=== PATIENT | male | born 1960 | race Caucasian/White ===

== ENCOUNTER 2018-02-05 11:41 | Emergency (ER) | payer SELFPAY ==
[2018-02-05] MEDS ORDERED: DOXYCYCLINE 100 MG CAP PO ONE (12:45)
[2018-02-05] MEDS ORDERED: CLINDAMYCIN IV 150 MG/ML (4 mL) VIAL ONE (12:50)
--- NOTE | 2018-02-05 12:50 | EDPHYS ---
Physician Documentation [facility] Name: Edson Rosenbaum Age: 57 yrs Sex: Male : 1960 Arrival Date: 02/05/2018 Time: 11:45 Bed 6 Private MD: None, None ED Physician Garcia Beltran HPI: 02/05 12:56 This 57 yrs old Male presents to ER via Ambulatory with complaints of Abscess.kdr 12:56 The patient presents with an abscess of the left elbow and right quadriceps, the kdr patient presents with a swollen area of the . Description: irregular, localized, well demarcated, draining, erythematous, fluctuant, swollen, tense, warm. Onset: The symptoms/episode began/occurred gradually, 1 week(s) ago. Possible cause(s): unknown. Associated signs and symptoms: The patient has no apparent associated signs or symptoms. Modifying factors: the symptoms are alleviated by nothing, the symptoms are aggravated by movement, pressure, squeezing the lesion and expressing the contents, touching. Severity of symptoms: At their worst the symptoms were mild, in the emergency department the symptoms are unchanged. The patient has experienced similar episodes in the past, several times. The patient has not recently seen a physician. Historical: - Allergies: 11:51 No Known Allergies; la1 - PMHx: 11:51 Hypertension; la1 - Immunization history:: Adult Immunizations. - Social history:: Smoking status: Patient uses tobacco products, smokes two packs cigarettes per day. - Ebola Screening: : No symptoms or risks identified at this time. ROS: 12:56 Constitutional: Negative for fever, chills, and weight loss, Eyes: Negative for injury, kdr pain, redness, and discharge, ENT: Negative for injury, pain, and discharge, Neck: Negative for injury, pain, and swelling, Cardiovascular: Negative for chest pain, palpitations, and edema, Respiratory: Negative for shortness of breath, cough, wheezing, and pleuritic chest pain, Abdomen/GI: Negative for abdominal pain, nausea, vomiting, diarrhea, and constipation, Back: Negative for injury and pain, : Negative for injury, bleeding, discharge, and swelling, MS/Extremity: Negative for injury and deformity, Neuro: Negative for headache, weakness, numbness, tingling, and seizure activity. Psych: Negative for depression, anxiety, suicide ideation, homicidal ideation, and hallucinations, Allergy/Immunology: Negative for hives, rash, and allergies, Endocrine: Negative for neck swelling, polydipsia, polyuria, polyphagia, and marked weight changes, Hematologic/Lymphatic: Negative for swollen nodes, abnormal bleeding, and unusual bruising. 12:56 Skin: Positive for abscess, cellulitis, erythema, swelling. Exam: 12:56 Constitutional: This is a well developed, well nourished patient who is awake, alert, kdr and in no acute distress. 12:56 Skin: Appearance: normal except for affected area, abscess, that is small, that is moderate sized, approximately 2 cm(s), of the left elbow and right quadriceps. Vital Signs: 11:50 BP 150 / 90; Pulse 86; Resp 19; Temp 98.3(TE); Pulse Ox 100% on R/A; Weight 83.91 kg; la1 MDM: 12:49 Patient medically screened. kdr 12:56 Data reviewed: vital signs, nurses notes. Counseling: I had a detailed discussion with kdr the patient and/or guardian regarding: the historical points, exam findings, and any diagnostic results supporting the discharge/admit diagnosis, the need for outpatient follow up. Special discussion: I discussed with the patient/guardian in detail that at this point there is no indication for admission to the hospital. It is understood, however, that if the symptoms persist or worsen the patient needs to return immediately for re-evaluation. Administered Medications: 12:48 Drug: Clindamycin 900 mg {Note: 450mg administered to right gluteus and 450mg aa5 administered to left gluteus .} Route: IM; Site: right gluteus; 13:10 Follow up: Response: No adverse reaction aa5 12:48 Drug: Doxycycline 100 mg Route: PO; aa5 13:10 Follow up: Response: No adverse reaction aa5 Disposition: 02/05/18 12:49 Discharged to Home. Impression: Abscess to right anterior though and left elbow. - Condition is Stable. - Prescriptions for Clindamycin HCl 300 mg Oral Capsule - take 1 capsule by ORAL route every 6 hours for 10 days; 40 capsule. Doxycycline Hyclate 100 mg Oral Tablet - take 1 tablet by ORAL route every 12 hours for 10 days; 20 tablet. Tylenol- Codeine #3 300-30 mg Oral Tablet - take 2 tablets by ORAL route every 6 hours As needed; 16 tablet. - Medication Reconciliation Form, Thank You Letter, Antibiotic Education, Prescription Opioid Use form. - Follow up: Private Physician; When: 2 - 3 days; Reason: If symptoms return, Further diagnostic work-up, Recheck today's complaints, Continuance of care, Re-evaluation by your physician. - Problem is new. - Symptoms have improved. Signatures: Garcia Beltran MD MD kdr Tatyana Munoz RN RN aa5 Francisco Javier Quiroz RN RN la1 Corrections: (The following items were deleted from the chart) 13:12 12:49 02/05/2018 12:49 Discharged to Home. Impression: Abscess to right anterior though aa5 and left elbow. Condition is Stable. Forms are Medication Reconciliation Form, Thank You Letter, Antibiotic Education, Prescription Opioid Use. Follow up: Private Physician; When: 2 - 3 days; Reason: If symptoms return, Further diagnostic work-up, Recheck today's complaints, Continuance of care, Re-evaluation by your physician. Problem is new. Symptoms have improved. kdr
--- NOTE | 2018-02-05 12:50 | ER ---
Nurse's Notes [facility] Name: Edson Rosenbaum Age: 57 yrs Sex: Male : 1960 Arrival Date: 02/05/2018 Time: 11:45 Bed 6 Private MD: None, None Diagnosis: Abscess to right anterior though and left elbow Presentation: 02/05 11:50 Presenting complaint: Patient states: Abscess noted to left elbow and right thigh. la1 Transition of care: patient was not received from another setting of care. Onset of symptoms was February 05, 2018. Risk Assessment: Do you want to hurt yourself or someone else? Patient reports no desire to harm self or others. Initial Sepsis Screen: Does the patient meet any 2 criteria? No. Patient's initial sepsis screen is negative. Does the patient have a suspected source of infection? No. Patient's initial sepsis screen is negative. Care prior to arrival: None. 11:50 Method Of Arrival: Ambulatory la1 11:50 Acuity: OLIVIA 4 la1 Historical: - Allergies: 11:51 No Known Allergies; la1 - PMHx: 11:51 Hypertension; la1 - Immunization history:: Adult Immunizations. - Social history:: Smoking status: Patient uses tobacco products, smokes two packs cigarettes per day. - Ebola Screening: : No symptoms or risks identified at this time. Screenin:50 Abuse screen: Denies threats or abuse. Nutritional screening: No deficits noted. aa5 Tuberculosis screening: No symptoms or risk factors identified. Fall Risk None identified. Assessment: 11:50 General: Appears comfortable, Behavior is calm, cooperative. Pain: Complains of pain in aa5 left elbow and right thigh Pain does not radiate. Pain currently is 8 out of 10 on a pain scale. Quality of pain is described as tender, Is continuous. Neuro: Level of Consciousness is awake, alert, obeys commands, Oriented to person, place, time, situation. Cardiovascular: Heart tones S1 S2 present Rhythm is regular. Respiratory: Airway is patent Respiratory effort is even, unlabored, Respiratory pattern is regular, symmetrical. GI: No signs and/or symptoms were reported involving the gastrointestinal system. : No signs and/or symptoms were reported regarding the genitourinary system. EENT: No signs and/or symptoms were reported regarding the EENT system. Derm: Skin is pink, warm \T\ dry. Abscess located on left elbow and right thigh. Abscess to left elbow is open and draining clear fluid, abscess to right thigh is closed with no drainage noted and with redness. Musculoskeletal: Range of motion: intact in all extremities. 13:10 Reassessment: Patient is alert, oriented x 3, equal unlabored respirations, skin aa5 warm/dry/pink. Vital Signs: 11:50 BP 150 / 90; Pulse 86; Resp 19; Temp 98.3(TE); Pulse Ox 100% on R/A; Weight 83.91 kg; la1 ED Course: 11:45 Patient arrived in ED. mr 11:45 None, None is Private Physician. mr 11:50 Triage completed. la1 11:50 Arm band placed on left wrist. la1 11:50 Patient has correct armband on for positive identification. Bed in low position. Call aa5 light in reach. 11:54 Tatyana Munoz, RN is Primary Nurse. aa5 12:07 Garcia Beltran MD is Attending Physician. kdr 12:34 No provider procedures requiring assistance completed. aa5 13:10 Patient did not have IV access during this emergency room visit. aa5 Administered Medications: 12:48 Drug: Clindamycin 900 mg {Note: 450mg administered to right gluteus and 450mg aa5 administered to left gluteus .} Route: IM; Site: right gluteus; 13:10 Follow up: Response: No adverse reaction aa5 12:48 Drug: Doxycycline 100 mg Route: PO; aa5 13:10 Follow up: Response: No adverse reaction aa5 Outcome: 12:49 Discharge ordered by . kdr 13:10 Discharged to home ambulatory. aa5 13:10 Condition: stable 13:10 Discharge instructions given to patient, Instructed on discharge instructions, follow up and referral plans. medication usage, Demonstrated understanding of instructions, follow-up care, medications, Prescriptions given X 3. 13:12 Patient left the ED. aa5 Signatures: Garcia Beltran MD MD kdr Rivera, Maria mr Tatyana Munoz, RN RN aa5 Francisco Javier Quiroz RN RN la1
== END 2018-02-05 13:12 | disposition home or self-care (01) ==
LOC: ER 11:41
DX: L02.414 Cutaneous abscess of left upper limb (principal); L02.415 Cutaneous abscess of right lower limb; I10 Essential (primary) hypertension; F17.210 Nicotine dependence, cigarettes, uncomplicated
CPT/HCPCS: 96372; 99283; S0077

== ENCOUNTER 2019-10-08 19:30 | Emergency (ER) | payer SELFPAY ==
[2019-10-08 20:40] LABS: Absolute Lymphocytes (CBC) 1.8 K/uL (0.7-4.9); Basophils % 0.9 % (0-1.3); Hematocrit 44.3 % (39.6-49.0); Lymphocytes % 13.6 % (15.3-44.8); MPV 9.6 fL (7.6-11.3); RBC Red Blood Cell Count 4.88 M/uL (4.33-5.43)
[2019-10-08] MEDS ORDERED: LIDOCAINE 1% MPF 5 ML VIAL ONE (20:41)
[2019-10-08] MEDS ORDERED: CLINDAMYCIN 900MG/D5W 900 MG/50 ML IVPB IV ONE (20:41)
[2019-10-08] MEDS ORDERED: HYDRALAZINE HCL 20 MG/ML VIAL ONE (20:41)
--- NOTE | 2019-10-08 21:17 | ER ---
Nurse's Notes [facility] Name: Edson Rosenbaum Age: 59 yrs Sex: Male : 1960 Arrival Date: 10/08/2019 Time: 19:31 Bed 20 Private MD: Diagnosis: Cellulitis of face;Hypertension secondary to other renal disorders Presentation: 10/07 19:34 Chief complaint: Patient states: Abscess and swelling on L cheek x 2 days. Coronavirus ca1 screen: Proceed with normal triage. Patient denies a cough. Patient denies shortness of breath or difficulty breathing. Patient denies measured and/or subjective temperature greater than 100.4F prior to today's visit. Patient denies travel on a cruise ship or to a country the [facility] currently lists as an affected area. Patient denies contact with known and/or suspected case of COVID-19. Ebola Screen: Patient negative for fever greater than or equal to 101.5 degrees Fahrenheit, and additional compatible Ebola Virus Disease symptoms Patient denies exposure to infectious person. Patient denies travel to an Ebola-affected area in the 21 days before illness onset. No symptoms or risks identified at this time. Initial Sepsis Screen: Does the patient meet any 2 criteria? No. Patient's initial sepsis screen is negative. Does the patient have a suspected source of infection? No. Patient's initial sepsis screen is negative. Risk Assessment: Do you want to hurt yourself or someone else? Patient reports no desire to harm self or others. Onset of symptoms was October 08, 2019. 19:34 Method Of Arrival: Ambulatory ca1 19:34 Acuity: OLIVIA 4 ca1 Triage Assessment: 20:00 General: Appears in no apparent distress. uncomfortable, Behavior is calm, cooperative. ls4 20:00 Neuro: No deficits noted. Cardiovascular: No deficits noted. Respiratory: No deficits ls4 noted. Historical: - Allergies: 19:37 No Known Allergies; ca1 - Home Meds: 19:37 None [Active]; ca1 - PMHx: 19:37 Hypertension; ca1 - PSHx: 19:37 Cholecystectomy; Appendectomy; ca1 - Immunization history:: Adult Immunizations not up to date, Flu vaccine is not up to date. - Social history:: Smoking status: Patient reports the use of cigarette tobacco products, smokes two packs cigarettes per day. Screenin:39 Abuse screen: Denies threats or abuse. Denies injuries from another. ls4 19:39 Nutritional screening: No deficits noted. Tuberculosis screening: No symptoms or risk ls4 factors identified. Fall Risk None identified. Assessment: 20:01 Pain: Complains of pain in left cheek Pain currently is 7 out of 10 on a pain scale. ls4 20:01 Neuro: No deficits noted. Cardiovascular: Denies chest pain. Respiratory: No deficits ls4 noted. GI: No deficits noted. : No deficits noted. Derm: Abscess located on left cheek is quarter sized. Musculoskeletal: No deficits noted. Vital Signs: 19:34 BP 191 / 121; Pulse 105; Resp 18 S; Temp 98.6(TE); Pulse Ox 98% on R/A; Weight 90.72 kg ca1 (R); Height 6 ft. 5 in. (195.58 cm) (R); Pain 7/10; 21:00 BP 188 / 118; Pulse 102; Resp 22; Pulse Ox 99% ; Pain 0/10; ls4 21:49 BP 160 / 94; Pulse 78; Resp 16; Temp 98.4(O); Pulse Ox 99% on R/A; Pain 7/10; ls4 19:34 Body Mass Index 23.72 (90.72 kg, 195.58 cm) ca1 ED Course: 19:31 Patient arrived in ED. ds1 19:36 Triage completed. ca1 19:37 Arm band placed on right wrist. ca1 19:38 Anupam Beasley MD is Attending Physician. tw4 19:39 Patient has correct armband on for positive identification. Bed in low position. Call ls4 light in reach. Side rails up X 1. Pulse ox on. NIBP on. Verbal reassurance given. Diet: Patient is NPO. 19:42 Abida Marsh, RN is Primary Nurse. ls4 20:26 Initial lab(s) drawn, by , sent to lab. First set of blood cultures drawn By ISABEL jamil. lt1 20:31 Inserted saline lock: 20 gauge in right antecubital area, using aseptic technique. lt1 20:54 Second set of blood cultures drawn By MAHI jamil. lt1 21:01 Assist provider with I \T\ D: of an abscess on left facial cyst. Set up I\T\D tray. ls 4 Performed by Anupam Beasley MD Wound packed. iodoform gauze, Dressing with 4X4s, Patient tolerated well. 21:58 IV discontinued, intact, bleeding controlled, No redness/swelling at site. ls4 Administered Medications: 20:35 Drug: Cleocin 900 mg Route: IVPB; Infused Over: 30 mins; Site: left antecubital; ls4 21:05 Follow up: Response: No adverse reaction; IV Status: Completed infusion; IV Intake: [id number] 20:38 Drug: hydrALAZINE 20 mg Route: IV; Rate: bolus; Site: left antecubital; ls4 21:30 Follow up: IV Status: Completed infusion; IV Intake: 5ml ls4 20:38 Drug: Lidocaine (1 %) 1 vials Volume: 5 ml; Route: Infiltration; ls4 21:28 Drug: Labetalol 20 mg Route: IVP; Infused Over: 2 mins; Site: left antecubital; ls4 21:48 Follow up: Response: No adverse reaction; Marked relief of symptoms; Blood pressure is ls4 lowered Intake: 21:05 IV: 50ml; Total: 50ml. ls4 21:30 IV: 5ml; Total: 55ml. ls4 Outcome: 21:01 Discharged to home ambulatory. ls4 21:01 Condition: good 21:01 Discharge instructions given to patient, Instructed on discharge instructions, follow up and referral plans. safety practices, Demonstrated understanding of instructions, follow-up care, medications, wound care, Prescriptions given X 3. 21:17 Discharge ordered by . tw4 22:00 Patient left the ED. ls4 Signatures: Odalis Knutson ds1 Anupam Beasley MD MD tw4 Abida Marsh, ELVIA RN ls4 Ursula Garza RN RN ca1 Jena Cee 1 Corrections: (The following items were deleted from the chart) 19:41 19:34 Chief complaint: Patient states: Abscess and swelling on L cheek x 2 days ago. ca1ca1 19:41 19:34 Chief complaint: Patient states: Abscess and swelling on L cheek x 2 days ca1 ca1 21:31 21:30 IV Status: Completed infusion; IV Intake: 50ml ls4 ls4 21:31 21:31 Response: No adverse reaction; IV Status: Completed infusion; IV Intake: 50ml ls4 ls4 21:57 19:39 No provider procedures requiring assistance completed. ls4 ls4
--- NOTE | 2019-10-08 21:17 | EDPHYS ---
Physician Documentation [facility] Name: Edson Rosenbaum Age: 59 yrs Sex: Male : 1960 Arrival Date: 10/08/2019 Time: 19:31 Bed 20 Private MD: ED Physician Anupam Beasley HPI: 10/07 20:20 This 59 yrs old Male presents to ER via Ambulatory with complaints of Facial tw4 Cyst. 20:20 The patient presents with an abscess of the left cheek, The patient presents with tw4 cellulitis of the left cheek, the patient presents with a swollen area of the left cheek. Description: The affected area is moderate sized, localized, draining, erythematous, fluctuant, hot. Onset: The symptoms/episode began/occurred 2 day(s) ago. Possible cause(s): unknown. Associated signs and symptoms: The patient has no apparent associated signs or symptoms. Modifying factors: the symptoms are alleviated by nothing, the symptoms are aggravated by nothing. Severity of symptoms: At their worst the symptoms were moderate, in the emergency department the symptoms are unchanged. Historical: - Allergies: 19:37 No Known Allergies; ca1 - Home Meds: 19:37 None [Active]; ca1 - PMHx: 19:37 Hypertension; ca1 - PSHx: 19:37 Cholecystectomy; Appendectomy; ca1 - Immunization history:: Adult Immunizations not up to date, Flu vaccine is not up to date. - Social history:: Smoking status: Patient reports the use of cigarette tobacco products, smokes two packs cigarettes per day. ROS: 20:20 Constitutional: Negative for fever, chills, and weight loss, Eyes: Negative for injury, tw4 pain, redness, and discharge, Cardiovascular: Negative for chest pain, palpitations, and edema, Respiratory: Negative for shortness of breath, cough, wheezing, and pleuritic chest pain, Abdomen/GI: Negative for abdominal pain, nausea, vomiting, diarrhea, and constipation, Back: Negative for injury and pain, MS/Extremity: Negative for injury and deformity. 20:20 Skin: Positive for abscess, cellulitis, of the left cheek. Exam: 20:20 Constitutional: This is a well developed, well nourished patient who is awake, alert, tw4 and in no acute distress. Head/Face: Normocephalic, atraumatic. Chest/axilla: Normal chest wall appearance and motion. Nontender with no deformity. No lesions are appreciated. Cardiovascular: Regular rate and rhythm with a normal S1 and S2. No gallops, murmurs, or rubs. Normal PMI, no JVD. No pulse deficits. Respiratory: Lungs have equal breath sounds bilaterally, clear to auscultation and percussion. No rales, rhonchi or wheezes noted. No increased work of breathing, no retractions or nasal flaring. Abdomen/GI: Soft, non-tender, with normal bowel sounds. No distension or tympany. No guarding or rebound. No evidence of tenderness throughout. Back: No spinal tenderness. No costovertebral tenderness. Full range of motion. MS/ Extremity: Pulses equal, no cyanosis. Neurovascular intact. Full, normal range of motion. Neuro: Awake and alert, GCS 15, oriented to person, place, time, and situation. Cranial nerves II-XII grossly intact. Motor strength 5/5 in all extremities. Sensory grossly intact. Cerebellar exam normal. Normal gait. 20:20 Skin: abscess, that is moderate sized, approximately 4 cm(s), of the left cheek, cellulitis, that is moderate. Vital Signs: 19:34 BP 191 / 121; Pulse 105; Resp 18 S; Temp 98.6(TE); Pulse Ox 98% on R/A; Weight 90.72 kg ca1 (R); Height 6 ft. 5 in. (195.58 cm) (R); Pain 7/10; 21:00 BP 188 / 118; Pulse 102; Resp 22; Pulse Ox 99% ; Pain 0/10; ls4 21:49 BP 160 / 94; Pulse 78; Resp 16; Temp 98.4(O); Pulse Ox 99% on R/A; Pain 7/10; ls4 19:34 Body Mass Index 23.72 (90.72 kg, 195.58 cm) ca1 Procedures: 21:09 I \T\ D: Incision and drainage was performed for an abscess of the left left cheek tw4 Prepped with Betadine, Anesthetized with 3 ml's 1% Lidocaine. Incised with #10 blade. Drained small amount Packed with iodoform gauze, Dressing: sterile 4x4 gauze, the patient tolerated the procedure well. MDM: 19:44 Patient medically screened. tw4 21:16 Differential diagnosis: abscess, cellulitis. Data reviewed: vital signs, nurses notes. tw4 Data interpreted: Pulse oximetry: Interpretation: normal. Counseling: I had a detailed discussion with the patient and/or guardian regarding: the historical points, exam findings, and any diagnostic results supporting the discharge/admit diagnosis. Counseling: I had a detailed discussion with the patient and/or guardian regarding: the presence of at least one elevated blood pressure reading (>120/80) during this emergency department visit. 10/07 19:49 Order name: CBC with Diff; Complete Time: 21:08 tw4 10/07 21:09 Interpretation: Normal except: WBC 13.1; LYM% 13.6; SHARONDA% 75.8; LYMA 1.8; NEUT A 10.0. tw4 10/07 19:49 Order name: Blood Culture Adult (2) tw4 Administered Medications: 20:35 Drug: Cleocin 900 mg Route: IVPB; Infused Over: 30 mins; Site: left antecubital; ls4 21:05 Follow up: Response: No adverse reaction; IV Status: Completed infusion; IV Intake: [id number] 20:38 Drug: hydrALAZINE 20 mg Route: IV; Rate: bolus; Site: left antecubital; ls4 21:30 Follow up: IV Status: Completed infusion; IV Intake: 5ml ls4 20:38 Drug: Lidocaine (1 %) 1 vials Volume: 5 ml; Route: Infiltration; ls4 21:28 Drug: Labetalol 20 mg Route: IVP; Infused Over: 2 mins; Site: left antecubital; ls4 21:48 Follow up: Response: No adverse reaction; Marked relief of symptoms; Blood pressure is ls4 lowered Disposition: 10/08/19 21:17 Discharged to Home. Impression: Cellulitis of face, Hypertension secondary to other renal disorders. - Condition is Stable. - Discharge Instructions: Skin Abscess, Cellulitis, Adult, Hypertension, [id number], Percutaneous Abscess Drain. - Prescriptions for Cleocin 300 mg Oral Capsule - take 1 capsule by ORAL route every 6 hours for 10 days; 40 capsule. Norvasc 10 mg Oral Tablet - take 1 tablet by ORAL route once daily; 30 tablet. Tylenol- Codeine #3 300-30 mg Oral Tablet - take 2 tablet by ORAL route every 6 hours As needed; 6 tablet. - Medication Reconciliation Form, Thank You Letter, Antibiotic Education, Prescription Opioid Use form. - Follow up: Private Physician; When: 1 - 2 days; Reason: Recheck today's complaints, Continuance of care, Re-evaluation by your physician. - Problem is new. - Symptoms have improved. Signatures: Dispatcher [employer] Anupam Duval MD MD tw4 Abida Marsh RN RN ls4 Ursula Garza RN RN ca1 Corrections: (The following items were deleted from the chart) 22:00 21:17 10/08/2019 21:17 Discharged to Home. Impression: Cellulitis of face; Hypertension ls4 secondary to other renal disorders. Condition is Stable. Forms are Medication Reconciliation Form, Thank You Letter, Antibiotic Education, Prescription Opioid Use. Follow up: Private Physician; When: 1 - 2 days; Reason: Recheck today's complaints, Continuance of care, Re-evaluation by your physician. Problem is new. Symptoms have improved. tw4
[2019-10-08] MEDS ORDERED: LABETALOL 20 MG/4ML SYRINGE IV ONE (21:22)
[2019-10-08 23:51] VITALS: O2SAT 99
[2019-10-08 23:52] VITALS: BP 160/94; TEMP 98.4
== END 2019-10-08 22:00 | disposition home or self-care (01) ==
LOC: ER 19:30
PROC: 0J910ZZ Drainage of Face Subcutaneous Tissue and Fascia, Open Approach (ICD-10-PCS; principal; 2019-10-08)
DX: L03.211 Cellulitis of face (principal); I15.1 Hypertension secondary to other renal disorders; F17.210 Nicotine dependence, cigarettes, uncomplicated
CPT/HCPCS: 36415; 85025; 87040; 96365; 96375; 99284; J0360

== ENCOUNTER 2019-10-12 19:31 | Emergency (ER) | payer SELFPAY ==
[2019-10-12] MEDS ORDERED: LIDOCAINE 1% MPF 5 ML VIAL ONE (21:19)
--- NOTE | 2019-10-12 22:31 | ER ---
Nurse's Notes [facility] Name: Edson Rosenbaum Age: 59 yrs Sex: Male : 1960 Arrival Date: 10/12/2019 Time: 19:33 Bed 5 Private MD: Diagnosis: Cutaneous abscess of face Presentation: 10/11 19:55 Chief complaint: Patient states: swelling on my left face started last Wednesday, came rr5 here last Wednesday they do drainage and now the upper area getting swollen. denies fever. 19:55 Coronavirus screen: Proceed with normal triage. Ebola Screen: Patient negative for rr5 fever greater than or equal to 101.5 degrees Fahrenheit, and additional compatible Ebola Virus Disease symptoms Patient denies exposure to infectious person. Patient denies travel to an Ebola-affected area in the 21 days before illness onset. Initial Sepsis Screen: Does the patient meet any 2 criteria? No. Patient's initial sepsis screen is negative. Does the patient have a suspected source of infection? Yes: Skin breakdown/wound. Risk Assessment: Do you want to hurt yourself or someone else? Patient reports no desire to harm self or others. Onset of symptoms was October 06, 2019. 19:55 Method Of Arrival: Ambulatory rr5 19:55 Acuity: OLIVIA 3 rr5 19:55 Note on antibiotic treatment now. rr5 Triage Assessment: 20:45 General: Appears uncomfortable, Behavior is calm, cooperative. ls4 20:45 Pain: Complains of pain in left cheek Pain currently is 8 out of 10 on a pain scale. ls4 EENT: No deficits noted. No signs and/or symptoms were reported regarding the EENT system. Neuro: No deficits noted. Cardiovascular: No deficits noted. Respiratory: No deficits noted. GI: No deficits noted. No signs and/or symptoms were reported involving the gastrointestinal system. : No deficits noted. No signs and/or symptoms were reported regarding the genitourinary system. Derm: GOLF BALL SIZED SWELLING ON LEFT CHEEK. Musculoskeletal: No deficits noted. No signs and/or symptoms reported regarding the musculoskeletal system. Historical: - Allergies: 20:00 No Known Allergies; rr5 - Home Meds: 20:00 Aleve Oral [Active]; rr5 - PMHx: 20:00 Hypertension; rr5 - PSHx: 20:00 Appendectomy; Cholecystectomy; hand surgery; rr5 - Immunization history:: Adult Immunizations unknown, Last tetanus immunization: up to date. - Social history:: Smoking status: Patient reports the use of cigarette tobacco products, smokes two packs cigarettes per day. Patient/guardian denies using alcohol, street drugs. - Family history:: not pertinent. - Hospitalizations: : No recent hospitalization is reported. Screenin:17 Abuse screen: Denies threats or abuse. Denies injuries from another. Nutritional rv screening: No deficits noted. Tuberculosis screening: No symptoms or risk factors identified. Fall Risk None identified. Assessment: 21:30 General: Appears comfortable, Behavior is calm, cooperative. rv 21:30 Pain: Complains of pain in face. Neuro: Level of Consciousness is awake, alert, obeys rv commands, Oriented to person, place, time, situation. Cardiovascular: Patient's skin is warm and dry. Respiratory: Airway is patent. Derm: Abscess located on left cheek is golf ball sized. Vital Signs: 19:55 BP 176 / 97; Pulse 116; Resp 20; Temp 97.8; Pulse Ox 98% ; Weight 90.72 kg; Height 6 rr5 ft. 5 in. (195.58 cm); Pain 8/10; 23:00 BP 167 / 92; Pulse 98; Resp 19; Pulse Ox 99% on R/A; Pain 5/10; ls4 19:55 Body Mass Index 23.72 (90.72 kg, 195.58 cm) rr5 ED Course: 19:33 Patient arrived in ED. ag3 19:55 Arm band placed on right wrist. rr5 20:02 Triage completed. rr5 20:40 Derek Cade, ELVIA is Primary Nurse. rr5 20:43 Tino Valverde MD is Attending Physician. rn 21:00 Assist provider with I \T\ D: of an abscess on left CHEEK Set up I\T\D tray. Performed by ls 4 Tino Valverde MD Culture sent to lab. Wound packed. iodoform gauze, Dressing with BANDAID Patient tolerated well. 21:00 Patient did not have IV access during this emergency room visit. ls4 21:13 Les Grubbs, ELVIA is Primary Nurse. rv 22:18 Patient has correct armband on for positive identification. Bed in low position. Call rv light in reach. Pulse ox on. CHINTANBP on. Administered Medications: 22:38 Drug: Lidocaine (1 %) 1 vials {Note: per Dr Valverde .} Volume: 5 ml; Route: Infiltration; ls4 22:40 Drug: [place] 10 mg-325 mg 1 tabs Route: PO; ls4 23:04 Follow up: Response: No adverse reaction; Marked relief of symptoms ls4 Outcome: 21:00 Discharged to home ambulatory, with family. ls4 21:00 Condition: stable 21:00 Discharge instructions given to patient, Instructed on discharge instructions, follow up and referral plans. medication usage, safety practices, Demonstrated understanding of instructions, follow-up care, medications, Prescriptions given X 1. 22:30 Discharge ordered by . rn 23:04 Patient left the ED. ls4 Signatures: Tino Valverde MD MD rn Vicente, Ronaldo RN RN Gabriela Luis ag3 Abida Marsh RN RN ls4 Derek Cade RN RN rr5
--- NOTE | 2019-10-12 22:31 | EDPHYS ---
Physician Documentation [facility] Name: Edson oRsenbaum Age: 59 yrs Sex: Male : 1960 Arrival Date: 10/12/2019 Time: 19:33 Bed 5 Private MD: ED Physician Tino Valverde HPI: 10/11 21:22 This 59 yrs old Male presents to ER via Ambulatory with complaints of BUMP ON rn FACE. 21:22 The patient presents with an abscess of the face. rn 21:23 Description: erythematous, fluctuant, swollen, warm. Onset: The symptoms/episode rn began/occurred 4 day(s) ago. Associated signs and symptoms: Pertinent positives: erythema. Modifying factors: the symptoms are alleviated by nothing, the symptoms are aggravated by touching. Severity of symptoms: At their worst the symptoms were mild, in the emergency department the symptoms are unchanged. The patient has not experienced similar symptoms in the past. Reports seen her recently for abscess, states left face was swollen, he poked it several times at home with syringe, majority of facial swelling improved but now noticed area that is growing just under left eye. No fever. Still on abx.. Historical: - Allergies: 20:00 No Known Allergies; rr5 - Home Meds: 20:00 Aleve Oral [Active]; rr5 - PMHx: 20:00 Hypertension; rr5 - PSHx: 20:00 Appendectomy; Cholecystectomy; hand surgery; rr5 - Immunization history:: Adult Immunizations unknown, Last tetanus immunization: up to date. - Social history:: Smoking status: Patient reports the use of cigarette tobacco products, smokes two packs cigarettes per day. Patient/guardian denies using alcohol, street drugs. - Family history:: not pertinent. - Hospitalizations: : No recent hospitalization is reported. ROS: 21:23 Constitutional: Negative for fever, chills, and weight loss, Eyes: Negative for injury, rn pain, redness, and discharge, ENT: Negative for injury Neck: Negative for injury, pain, and swelling, Skin: + abscess left upper face Neuro: Negative for headache, weakness, numbness, tingling, and seizure. Exam: 21:23 Constitutional: This is a well developed, well nourished patient who is awake, alert, rn and in no acute distress. Head/Face: Atraumatic. Skin: Warm, dry, area of about 2.5 cm of fluctuance and warmth/erythema, left periorbital region inferior and lateral to orbit. Inferior to this is old wound that was incised. No evidence of cellulitis or abscess to rest of face. Vital Signs: 19:55 BP 176 / 97; Pulse 116; Resp 20; Temp 97.8; Pulse Ox 98% ; Weight 90.72 kg; Height 6 rr5 ft. 5 in. (195.58 cm); Pain 8/10; 23:00 BP 167 / 92; Pulse 98; Resp 19; Pulse Ox 99% on R/A; Pain 5/10; ls4 19:55 Body Mass Index 23.72 (90.72 kg, 195.58 cm) rr5 Procedures: 22:29 I \T\ D: Incision and drainage was performed for an abscess of the left left cheek rn Prepped with Betadine, Anesthetized with 3 ml's 1% Lidocaine. Incised with #11 blade. Drained moderate amount purulent fluid. Packed with iodoform gauze, Dressing: sterile 4x4 gauze, the patient tolerated the procedure well. MDM: 20:43 Patient medically screened. rn 22:29 Differential diagnosis: abscess. Data reviewed: vital signs, nurses notes, and as a rn result, I will discharge patient. Counseling: I had a detailed discussion with the patient and/or guardian regarding: the historical points, exam findings, and any diagnostic results supporting the discharge/admit diagnosis, the need for outpatient follow up, to return to the emergency department if symptoms worsen or persist or if there are any questions or concerns that arise at home. Response to treatment: the patient's symptoms have markedly improved after treatment, and as a result, I will discharge patient. Special discussion: I discussed with the patient/guardian in detail that at this point there is no indication for admission to the hospital. It is understood, however, that if the symptoms persist or worsen the patient needs to return immediately for re-evaluation. 10/11 20:52 Order name: Wound Culture rn 10/11 20:52 Order name: Incision \T\ Drainage Setup; Complete Time: 21:16 rn Administered Medications: 22:38 Drug: Lidocaine (1 %) 1 vials {Note: per Dr Valverde .} Volume: 5 ml; Route: Infiltration; ls4 22:40 Drug: [place] 10 mg-325 mg 1 tabs Route: PO; ls4 23:04 Follow up: Response: No adverse reaction; Marked relief of symptoms ls4 Disposition: 10/12/19 22:30 Discharged to Home. Impression: Cutaneous abscess of face. - Condition is Stable. - Discharge Instructions: Skin Abscess, Incision and Drainage, Incision and Drainage, Care After. - Prescriptions for Bactrim DS 800- 160 mg Oral Tablet - take 1 tablet by ORAL route every 12 hours for 10 days; 20 tablet. - Medication Reconciliation Form, Thank You Letter, Antibiotic Education, Prescription Opioid Use form. - Follow up: Private Physician; When: As needed; Reason: Wound Recheck. - Problem is an ongoing problem. - Symptoms have improved. Signatures: Dispatcher [employer] EDMS Tino Valverde MD MD rn Stewart, Lisa RN RN ls4 Derek Cade RN RN rr5 Corrections: (The following items were deleted from the chart) 23:04 22:30 10/12/2019 22:30 Discharged to Home. Impression: Cutaneous abscess of face. ls4 Condition is Stable. Forms are Medication Reconciliation Form, Thank You Letter, Antibiotic Education, Prescription Opioid Use. Follow up: Private Physician; When: As needed; Reason: Wound Recheck. Problem is an ongoing problem. Symptoms have improved. rn
[2019-10-12] MEDS ORDERED: HYDROCODONE/APAP 10/325 TAB ONE (22:46)
[2019-10-13 09:32] VITALS: TEMP 97.8
[2019-10-13 09:34] VITALS: BP 167/92; O2SAT 99
== END 2019-10-12 23:04 | disposition home or self-care (01) ==
LOC: ER 19:31
PROC: 0J910ZZ Drainage of Face Subcutaneous Tissue and Fascia, Open Approach (ICD-10-PCS; principal; 2019-10-12)
DX: L02.01 Cutaneous abscess of face (principal); F17.210 Nicotine dependence, cigarettes, uncomplicated; I10 Essential (primary) hypertension
CPT/HCPCS: 87070; 87205; 99284

== ENCOUNTER 2020-02-07 22:12 | Emergency (ER) | payer SELFPAY ==
[2020-02-07] MEDS ORDERED: LIDOCAINE 1% 20 ML MDV ONE (23:00)
[2020-02-07] MEDS ORDERED: DIAZEPAM 5 MG TABLET ONE (23:05)
[2020-02-07] MEDS ORDERED: HYDROCODONE/APAP 10/325 TAB ONE (23:05)
[2020-02-07] MEDS ORDERED: DOXYCYCLINE 100 MG CAP PO ONE (23:06)
[2020-02-07] MEDS ORDERED: SMZ./TMP. 800/160 MG TABLET ONE (23:06)
--- NOTE | 2020-02-07 23:24 | EDPHYS ---
Physician Documentation [facility] Name: Edson Rosenbaum Age: 59 yrs Sex: Male : 1960 Arrival Date: 02/07/2020 Time: 22:13 Bed 5 Private MD: ED Physician David Aviles HPI: 02/06 23:51 This 59 yrs old Male presents to ER via Ambulatory with complaints of Insect jmm Bite. 23:51 The patient presents with an abscess of the scalp. Onset: The symptoms/episode jmm began/occurred 3 day(s) ago. Possible cause(s): unknown. Associated signs and symptoms: Pertinent positives: swelling. This is a 59 year old male with a history of htn that presents to the ED with complaints of swelling to his scalp beginning this past Wednesday. Denies fever but complains of chills. . Historical: - Allergies: 22:24 No Known Allergies; sg - PMHx: 22:24 Hypertension; sg - PSHx: 22:24 Appendectomy; Cholecystectomy; hand surgery; sg - Immunization history:: Adult Immunizations. - Social history:: Smoking status: Patient denies any tobacco usage or history of. ROS: 23:51 Constitutional: Negative for fever, chills, and weight loss, Cardiovascular: Negative jmm for chest pain, palpitations, and edema, Respiratory: Negative for shortness of breath, cough, wheezing, and pleuritic chest pain. 23:51 Skin: Positive for abscess. 23:51 All other systems are negative. Exam: 23:51 Constitutional: This is a well developed, well nourished patient who is awake, alert, jmm and in no acute distress. 23:51 Eyes: EOMI, no conjunctival erythema appreciated ENT: Moist Mucus Membranes Neck: Trachea midline, Supple Chest/axilla: Normal chest wall appearance and motion. Cardiovascular: Regular rate and rhythm. No edema appreciated Respiratory: Normal respirations, no respiratory distress appreciated Abdomen/GI: Non distended, soft Back: Normal ROM Skin: General appearance color normal MS/ Extremity: Moves all extremities, no obvious deformities appreciated, no edema noted to the lower extremities Neuro: Awake and alert, normal gait Psych: Behavior is normal, Mood is normal, Patient is cooperative and pleasant 23:51 Head/face: abscess noted to the left posterior scalp, induration, erythema noted. Vital Signs: 22:25 BP 118 / 104; Pulse 86; Resp 16; Temp 98.7; Pulse Ox 100% on R/A; Weight 86.18 kg; sg Height 6 ft. 5 in. (195.58 cm) (R); 23:15 BP 156 / 118; Pulse 87; Resp 18; Pulse Ox 99% on R/A; 02/07 00:03 BP 162 / 94; Pulse 80; Resp 16; Pulse Ox 97% ; Pain 5/10; mt2 02/06 22:25 Body Mass Index 22.53 (86.18 kg, 195.58 cm) sg Procedures: 02/06 23:54 I \T\ D: Incision and drainage was performed for an abscess of the left left parietal m area Prepped with Betadine, Anesthetized with 1 ml's 1% Lidocaine. Incised with #11 blade. Drained moderate amount purulent fluid. the patient tolerated the procedure well. MDM: 22:40 Patient medically screened. [facility] 23:23 Data reviewed: vital signs, nurses notes. Counseling: I had a detailed discussion with [facility] the patient and/or guardian regarding: the historical points, exam findings, and any diagnostic results supporting the discharge/admit diagnosis, the need for outpatient follow up, to return to the emergency department if symptoms worsen or persist or if there are any questions or concerns that arise at home. 02/06 22:45 Order name: Incision \T\ Drainage Setup; Complete Time: 22:50 [facility] Administered Medications: 22:54 Drug: [place] 10 mg-325 mg 1 tabs Route: PO; 23:34 Follow up: Response: No adverse reaction; Pain is decreased mt2 22:56 Drug: Bactrim (160 mg-800 mg (DS) 1 tablet Route: PO; 23:35 Follow up: Response: No adverse reaction; Pain is decreased mt2 22:58 Drug: Doxycycline 100 mg Route: PO; 23:35 Follow up: Response: No adverse reaction mt2 23:00 Drug: Valium 5 mg Route: PO; 23:34 Follow up: Response: No adverse reaction; Anxiety decreased mt2 23:38 Drug: Lidocaine (1 %) 20 ml {Note: Administered by Provider.} Volume: 20 ml; Route: wh Infiltration; 23:49 Follow up: Response: No adverse reaction mt2 Disposition: 02/07 17:00 Co-signature as Attending Physician, David Aviles MD I agree with the assessment and denisse plan of care. Disposition: 02/07/20 23:23 Discharged to Home. Impression: Scalp Abscess. - Condition is Stable. - Discharge Instructions: Skin Abscess. - Prescriptions for Ultracet 37.5- 325 mg Oral Tablet - take 1 tablet by ORAL route every 6 hours - for up to 5 days; do not exceed 8 tablets per day.; 20 tablet. Doxycycline Hyclate 100 mg Oral Tablet - take 1 tablet by ORAL route every 12 hours; 20 tablet. Bactrim DS 800- 160 mg Oral Tablet - take 1 tablet by ORAL route every 12 hours for 10 days; 20 tablet. - Medication Reconciliation Form, Thank You Letter, Antibiotic Education, Prescription Opioid Use form. - Follow up: Private Physician; When: 2 - 3 days; Reason: Recheck today's complaints, Continuance of care, Re-evaluation by your physician. Signatures: Dionicio Ro, RN David Perera MD MD cha Mickail, Joel, PA PA jmm Habalo, Winsy wh Toscano, Marlene, RN RN mt2 Corrections: (The following items were deleted from the chart) 00:03 02/06 23:23 02/07/2020 23:23 Discharged to Home. Impression: Scalp Abscess. Condition mt2 is Stable. Forms are Medication Reconciliation Form, Thank You Letter, Antibiotic Education, Prescription Opioid Use. Follow up: Private Physician; When: 2 - 3 days; Reason: Recheck today's complaints, Continuance of care, Re-evaluation by your physician. desmond
--- NOTE | 2020-02-07 23:24 | ER ---
Nurse's Notes [facility] Name: Edson Rosenbaum Age: 59 yrs Sex: Male : 1960 Arrival Date: 02/07/2020 Time: 22:13 Bed 5 Private MD: Diagnosis: Scalp Abscess Presentation: 02/06 22:25 Onset of symptoms was February 07, 2020. Care prior to arrival: None. sg 22:25 Acuity: OLIVIA 4 sg 22:25 Chief complaint: Patient states: I [place], was sg swatting off some martinez spiders and other bugs, I think something bit me or stung me on the left backside of my head, painful and swollen. reports unsure of what actually got me. Swelling noted to the left side of the lower neck, denies drainage at this time. Coronavirus screen: Client denies travel out of the [place] in the last 14 days. At this time, the client does not indicate any symptoms associated with coronavirus-19. Ebola Screen: Patient negative for fever greater than or equal to 101.5 degrees Fahrenheit, and additional compatible Ebola Virus Disease symptoms Patient denies exposure to infectious person. Patient denies travel to an Ebola-affected area in the 21 days before illness onset. No symptoms or risks identified at this time. Initial Sepsis Screen: Does the patient meet any 2 criteria? No. Patient's initial sepsis screen is negative. Does the patient have a suspected source of infection? No. Patient's initial sepsis screen is negative. Risk Assessment: Do you want to hurt yourself or someone else? Patient reports no desire to harm self or others. Transition of care: patient was not received from another setting of care. 22:25 Method Of Arrival: Ambulatory sg Triage Assessment: 23:15 Bite description: bite sustained to left parietal area by a spider, , animal wh information: vaccination(s) is not applicable. Historical: - Allergies: 22:24 No Known Allergies; sg - PMHx: 22:24 Hypertension; sg - PSHx: 22:24 Appendectomy; Cholecystectomy; hand surgery; sg - Immunization history:: Adult Immunizations. - Social history:: Smoking status: Patient denies any tobacco usage or history of. Screenin:16 Abuse screen: Denies threats or abuse. Denies injuries from another. Nutritional wh screening: No deficits noted. Tuberculosis screening: No symptoms or risk factors identified. Fall Risk None identified. Assessment: 22:50 General: Appears in no apparent distress. Behavior is calm, cooperative, appropriate wh for age. Pain: Complains of pain in left parietal area Pain currently is 9 out of 10 on a pain scale. Quality of pain is described as throbbing. Neuro: Level of Consciousness is awake, alert, obeys commands, Oriented to person, place, time, situation, Appropriate for age. Cardiovascular: Capillary refill < 3 seconds. Respiratory: Airway is patent Respiratory effort is even, unlabored, Respiratory pattern is regular, symmetrical. GI: Abdomen is flat, non-distended. : No signs and/or symptoms were reported regarding the genitourinary system. EENT: No signs and/or symptoms were reported regarding the EENT system. Derm: Skin is intact, is healthy with good turgor, Skin is pink, warm \T\ dry. normal, swelling on left parietal area. Musculoskeletal: Circulation, motion, and sensation intact. 23:35 Reassessment: Patient and/or family updated on plan of care and expected duration. Pain mt2 level reassessed. Patient is alert, oriented x 3, equal unlabored respirations, skin warm/dry/pink. General: Appears uncomfortable, Behavior is cooperative. Pain: Complains of pain in occipital area Pain currently is 10 out of 10 on a pain scale. 02/07 00:02 Reassessment: Patient and/or family updated on plan of care and expected duration. Pain mt2 level reassessed. Patient is alert, oriented x 3, equal unlabored respirations, skin warm/dry/pink. General: Appears comfortable, Behavior is calm, cooperative. Pain: Complains of pain in scalp Pain currently is 5 out of 10 on a pain scale. Vital Signs: 02/06 22:25 BP 118 / 104; Pulse 86; Resp 16; Temp 98.7; Pulse Ox 100% on R/A; Weight 86.18 kg; sg Height 6 ft. 5 in. (195.58 cm) (R); 23:15 BP 156 / 118; Pulse 87; Resp 18; Pulse Ox 99% on R/A; wh 02/07 00:03 BP 162 / 94; Pulse 80; Resp 16; Pulse Ox 97% ; Pain 5/10; mt2 02/06 22:25 Body Mass Index 22.53 (86.18 kg, 195.58 cm) ED Course: 02/06 22:13 Patient arrived in ED. cl3 22:25 Arm band placed on. 22:26 Triage completed. 22:38 Zachariah Cochran PA is PHCP. [facility] 22:38 David Aviles MD is Attending Physician. [facility] 22:44 Rita Flor RN is Primary Nurse. mt2 23:17 Patient has correct armband on for positive identification. Bed in low position. Call light in reach. Side rails up X 1. Pulse ox on. NIBP on. 23:36 Assist provider with I \T\ D: Set up I\T\D tray. mt 2 23:36 Patient did not have IV access during this emergency room visit. mt2 Administered Medications: 22:54 Drug: [place] 10 mg-325 mg 1 tabs Route: PO; 23:34 Follow up: Response: No adverse reaction; Pain is decreased mt2 22:56 Drug: Bactrim (160 mg-800 mg (DS) 1 tablet Route: PO; 23:35 Follow up: Response: No adverse reaction; Pain is decreased mt2 22:58 Drug: Doxycycline 100 mg Route: PO; 23:35 Follow up: Response: No adverse reaction mt2 23:00 Drug: Valium 5 mg Route: PO; 23:34 Follow up: Response: No adverse reaction; Anxiety decreased mt2 23:38 Drug: Lidocaine (1 %) 20 ml {Note: Administered by Provider.} Volume: 20 ml; Route: Infiltration; 23:49 Follow up: Response: No adverse reaction mt2 Outcome: 23:23 Discharge ordered by MD. logan 02/07 00:03 Discharged to home ambulatory. mt2 Condition: good Discharge instructions given to patient, Instructed on discharge instructions, the need for admit, medication usage, wound care, Demonstrated understanding of instructions, follow-up care, medications, wound care, Prescriptions given X 3. 00:03 Patient left the ED. mt2 Signatures: Dionicio Ro RN RN Zachariah Cochran PA PA [facility] Romi Thompson Betsy Dietz cl3 Rita Flor RN RN mt2 Corrections: (The following items were deleted from the chart) 02/06 22:44 22:25 Onset of symptoms was February 07, 2020 sg
[2020-02-10 02:36] VITALS: TEMP 98.7
[2020-02-10 02:38] VITALS: BP 162/94; O2SAT 97
== END 2020-02-08 00:03 | disposition home or self-care (01) ==
LOC: ER 22:12
PROC: 0J900ZZ Drainage of Scalp Subcutaneous Tissue and Fascia, Open Approach (ICD-10-PCS; principal; 2020-02-08)
DX: L02.811 Cutaneous abscess of head [any part, except face] (principal); I10 Essential (primary) hypertension
CPT/HCPCS: 99284

== ENCOUNTER 2020-11-22 13:26 | Emergency (ER) | payer SELFPAY ==
--- NOTE | 2020-11-22 14:44 | RAD REPORT ---
EXAM DESCRIPTION: CT - Thorax Jules Galan - 11/22/2020 2:32 pm CLINICAL HISTORY: PAIN, had cough and fever for 2 weeks, lower right chest pain COMPARISON: No comparisons TECHNIQUE: Axial 5 mm thick images of the chest were obtained without IV contrast. All CT scans are performed using dose optimization technique as appropriate and may include automated exposure control or mA/KV adjustment according to patient size. FINDINGS: Patient has moderate severity for age emphysema changes of each upper lobe. A more mild em physema pattern is seen in the posterior right lower lobe. No acute infiltrate or lung parenchymal ma ss. No pleural thickening or pleural effusion. No pneumothorax. No abnormal mediastinal or hilar masses or lymphadenopathy seen. No gross aortic or pulmonary artery finding suspected. Assessment is limited in the absence of IV contrast. No cardiomegaly or pericardi al effusion. No abnormal axillary lymphadenopathy. Patient has prominent costochondral calcifications. No rib frac ture or identified. The patient has a 2.5 cm AP x 8 centimeter TR hematoma in the lower chest at the abdominus rectus mus fabrizio origin at the lower ribcage. This may include the muscle or be positioned between the muscle and the ribcage. No pathologic or destructive change. No air in the soft tissues. IMPRESSION: Approximately 8 x 2.5 centimeter hematoma in the right lower chest/ upper abdomen at the right rectus abdominis muscle origin with the lower ribcage. No rib fracture or pathologic bone process identifiable. Mild to moderate severity for age emphysema changes with no mass, infiltrate or acute pleural or pare nchymal process. No pneumothorax or pleural effusion.
--- NOTE | 2020-11-22 15:02 | EDPHYS ---
Physician Documentation [facility] Name: Edson Rosenbaum Age: 60 yrs Sex: Male : 1960 Arrival Date: 11/22/2020 Time: 13:29 Bed 15 Private MD: None, None ED Physician Kenyatta Levi HPI: 11/22 15:08 This 60 yrs old Male presents to ER via Ambulatory with complaints of Chest jr8 Wall Pain. 15:09 The patient or guardian reports chest pain that is located primarily in the anterior jr8 chest wall. The pain does not radiate. Associated signs and symptoms: The patient has no apparent associated signs or symptoms. The chest pain is described as sharp. Modifying factors: The symptoms are alleviated by nothing. the symptoms are aggravated by cough, deep breath, movement. Severity of pain: At its worst the pain was moderate in the emergency department the pain is unchanged. The patient has not experienced similar symptoms in the past. The patient has not recently seen a physician. Patient stated that he had coughing spell the other day. Since then has had swelling and bruising to right anterior chest wall. Has become painful to move . Historical: - Allergies: 13:52 No Known Allergies; ss - PMHx: 13:52 Hypertension; Arthritis; ss - PSHx: 13:52 Appendectomy; Cholecystectomy; hand surgery; ss - Immunization history:: Client reports having NOT received the Covid vaccine. Flu vaccine is not up to date. - Social history:: Smoking status: Patient reports the use of cigarette tobacco products, smokes two packs cigarettes per day. ROS: 15:09 Eyes: Negative for injury, pain, redness, and discharge, ENT: Negative for injury, jr8 pain, and discharge, Neck: Negative for injury, pain, and swelling, Respiratory: Negative for shortness of breath, cough, wheezing, and pleuritic chest pain, Abdomen/GI: Negative for abdominal pain, nausea, vomiting, diarrhea, and constipation, Back: Negative for injury and pain, MS/Extremity: Negative for injury and deformity, Skin: Negative for injury, rash, and discoloration, Neuro: Negative for headache, weakness, numbness, tingling, and seizure. 15:09 Cardiovascular: Positive for chest pain, with cough, with movement. Exam: 15:09 Cardiovascular: Regular rate and rhythm with a normal S1 and S2. No gallops, murmurs, jr8 or rubs. Normal PMI, no JVD. No pulse deficits. Respiratory: Lungs have equal breath sounds bilaterally, clear to auscultation and percussion. No rales, rhonchi or wheezes noted. No increased work of breathing, no retractions or nasal flaring. Abdomen/GI: Soft, non-tender, with normal bowel sounds. No distension or tympany. No guarding or rebound. No evidence of tenderness throughout. Skin: Warm, dry with normal turgor. Normal color with no rashes, no lesions, and no evidence of cellulitis. MS/ Extremity: Pulses equal, no cyanosis. Neurovascular intact. Full, normal range of motion. Neuro: Awake and alert, GCS 15, oriented to person, place, time, and situation. Cranial nerves II-XII grossly intact. Motor strength 5/5 in all extremities. Sensory grossly intact. Cerebellar exam normal. Normal gait. 15:09 Chest/axilla: Inspection: Patient has swelling and bruising noted to lower anterior chest wall , Palpation: tenderness, that is moderate. Vital Signs: 13:53 BP 167 / 106; Pulse 78; Resp 17; Temp 97.6; Pulse Ox 96% ; Weight 79.38 kg; Height 6 ss ft. 5 in. (195.58 cm); Pain 9/10; 14:45 BP 182 / 104; Pulse 67; Resp 19; Pulse Ox 100% ; zb 15:12 BP 177 / 98; Pulse 65; Resp 16; Pulse Ox 100% on R/A; zb 13:53 Body Mass Index 20.75 (79.38 kg, 195.58 cm) ss MDM: 13:59 Patient medically screened. jr8 15:00 Data reviewed: vital signs, nurses notes, radiologic studies, CT scan. Data jr8 interpreted: Pulse oximetry: on room air is 100 %. Interpretation: normal. Counseling: I had a detailed discussion with the patient and/or guardian regarding: the historical points, exam findings, and any diagnostic results supporting the discharge/admit diagnosis, radiology results, the need for outpatient follow up, a family practitioner, to return to the emergency department if symptoms worsen or persist or if there are any questions or concerns that arise at home. 11/22 14:15 Order name: CT Chest Wo Con; Complete Time: 14:52 jr8 Administered Medications: 14:57 Drug: Morris (HYDROcodone-acetaminophen) 10 mg-325 mg 1 tabs {Note: RASS +1.} Route: PO; zb 15:14 Follow up: Response: No adverse reaction; Marked relief of symptoms; Pain is decreased; zb RASS: Alert and Calm (0) 14:57 Drug: amLODIPine 5 mg Route: PO; zb 15:15 Follow up: Response: No adverse reaction zb Disposition: 11/23 07:03 Co-signature as Attending Physician, David Aviles MD I agree with the assessment and [facility] plan of care. PA/DIE MAKER BENCH STAMPING's history reviewed, patient interviewed, and examined. Disposition: 11/22/20 15:01 Discharged to Home. Impression: Chest Wall Hematoma. - Condition is Stable. - Discharge Instructions: Hematoma. - Medication Reconciliation Form, Thank You Letter, Antibiotic Education, Prescription Opioid Use form. - Follow up: Private Physician; When: 2 - 3 days; Reason: Recheck today's complaints, Continuance of care, Re-evaluation by your physician. - Problem is new. - Symptoms have improved. Signatures: Dispatcher [employer] [facility] David Aviles MD MD cha Smirch, Shelby, RN RN ss Roszak, Josh, PA PA jr8 Taniya Goddard RN RN zb Corrections: (The following items were deleted from the chart) 11/22 14:17 14:15 Thorax Wo Con+CT.RAD.BRZ ordered. [facility] 15:15 15:01 11/22/2020 15:01 Discharged to Home. Impression: Chest Wall Hematoma. Condition zb is Stable. Forms are Medication Reconciliation Form, Thank You Letter, Antibiotic Education, Prescription Opioid Use. Follow up: Private Physician; When: 2 - 3 days; Reason: Recheck today's complaints, Continuance of care, Re-evaluation by your physician. Problem is new. Symptoms have improved. jr8
--- NOTE | 2020-11-22 15:02 | ER ---
Nurse's Notes [facility] Name: Edson Rosenbaum Age: 60 yrs Sex: Male : 1960 Arrival Date: 11/22/2020 Time: 13:29 Bed 15 Private MD: None, None Diagnosis: Chest Wall Hematoma Presentation: 11/22 13:53 Chief complaint: Patient states: Had bad cough and fever for past two weeks. R lower ss chest pain for 1 week, site started swelling. Bruising noted. Denies trauma or falls, coughing hard only. Coronavirus screen: Client denies travel out of the [place] in the last 14 days. congestion, cough unrelated to allergies, Client presents with at least one sign or symptom that may indicate coronavirus-19. Standard/surgical mask placed on the client. The client reports previous COVID testing was negative. Ebola Screen: Patient denies travel to an Ebola-affected area in the 21 days before illness onset. Initial Sepsis Screen: Does the patient meet any 2 criteria? No. Patient's initial sepsis screen is negative. Does the patient have a suspected source of infection? Yes: Productive cough/pneumonia. Risk Assessment: Do you want to hurt yourself or someone else? Patient reports no desire to harm self or others. Onset of symptoms was November 15, 2020. 13:53 Method Of Arrival: Ambulatory ss 13:53 Acuity: OLIVIA 3 ss Triage Assessment: 14:51 Respiratory: Reports pain with cough pain with movement the patient has mild shortness zb of breath. Historical: - Allergies: 13:52 No Known Allergies; ss - PMHx: 13:52 Hypertension; Arthritis; ss - PSHx: 13:52 Appendectomy; Cholecystectomy; hand surgery; ss - Immunization history:: Client reports having NOT received the Covid vaccine. Flu vaccine is not up to date. - Social history:: Smoking status: Patient reports the use of cigarette tobacco products, smokes two packs cigarettes per day. Screenin:50 Abuse screen: Denies threats or abuse. Denies injuries from another. Nutritional zb screening: No deficits noted. Tuberculosis screening: No symptoms or risk factors identified. Fall Risk None identified. Assessment: 14:48 Reassessment: notified ecp of pt bloodpressure. General: Appears uncomfortable, zb Behavior is cooperative, agitated. Pain: Complains of pain in diaphragm and right breast Pain currently is 4 out of 10 on a pain scale. at worst was 10 out of 10 on a pain scale. Quality of pain is described as aching, tender, Pain began suddenly, 2-3 days ago. Neuro: Level of Consciousness is awake, alert, obeys commands, Oriented to person, place, time, situation. Cardiovascular: Heart tones S1 S2 present Capillary refill < 3 seconds Patient's skin is warm and dry. Rhythm is regular. Respiratory: Airway is patent Respiratory effort is even, unlabored, shallow, Respiratory pattern is regular. Respiratory: Breath sounds are diminished. GI: Abdomen is flat. Derm: Skin is intact, is healthy with good turgor. Musculoskeletal: Circulation, motion, and sensation intact. Range of motion: intact in all extremities. 15:12 Reassessment: Patient appears in no apparent distress at this time. patient ambulated zb out. no c/o at this time. Vital Signs: 13:53 BP 167 / 106; Pulse 78; Resp 17; Temp 97.6; Pulse Ox 96% ; Weight 79.38 kg; Height 6 ss ft. 5 in. (195.58 cm); Pain 9/10; 14:45 BP 182 / 104; Pulse 67; Resp 19; Pulse Ox 100% ; zb 15:12 BP 177 / 98; Pulse 65; Resp 16; Pulse Ox 100% on R/A; zb 13:53 Body Mass Index 20.75 (79.38 kg, 195.58 cm) ED Course: 13:29 Patient arrived in ED. ds1 13:30 None, None is Private Physician. ds1 13:52 Arm band placed on. ss 13:55 Triage completed. ss 13:55 Patient placed in an exam room, on a stretcher. ss 13:58 Chandra Jackson PA is PHCP. jr8 13:58 David Aviles MD is Attending Physician. jr8 13:58 Attending Physician role handed off by David Aviles MD jr8 13:58 Kenyatta Levi MD is Attending Physician. jr8 14:14 Taniya Goddard, ELVIA is Primary Nurse. zb 14:32 CT Chest Wo Con In Process Unspecified. EDMS 14:51 Patient has correct armband on for positive identification. Pulse ox on. NIBP on. Door zb closed. Noise minimized. 15:13 No provider procedures requiring assistance completed. Patient did not have IV access zb during this emergency room visit. Administered Medications: 14:57 Drug: Layton (HYDROcodone-acetaminophen) 10 mg-325 mg 1 tabs {Note: RASS +1.} Route: PO; zb 15:14 Follow up: Response: No adverse reaction; Marked relief of symptoms; Pain is decreased; zb RASS: Alert and Calm (0) 14:57 Drug: amLODIPine 5 mg Route: PO; zb 15:15 Follow up: Response: No adverse reaction zb Outcome: 15:01 Discharge ordered by MD. stock 15:13 Discharged to home ambulatory. zb 15:13 Condition: stable 15:13 Discharge instructions given to patient, Instructed on discharge instructions, follow up and referral plans. Demonstrated understanding of instructions, follow-up care. 15:15 Patient left the ED. zb Signatures: Dispatcher [facility] Odalis Knutson ds1 Audelia Howard RN RN Chandra Boyce PA PA 8 Taniya Goddard RN RN zb Corrections: (The following items were deleted from the chart) 15:14 15:13 Discharge instructions given to patient, Instructed on discharge instructions, zb follow up and referral plans. medication usage, Demonstrated understanding of instructions, follow-up care, medications, Prescriptions given X 1, zb
[2020-11-22] MEDS ORDERED: HYDROCODONE/APAP 10/325 TAB ONE (15:15)
[2020-11-22] MEDS ORDERED: AMLODIPINE 5 MG TAB ONE (15:15)
[2020-11-22 15:24] VITALS: TEMP 97.6
[2020-11-22 15:26] VITALS: O2SAT 100
[2020-11-22 15:27] VITALS: BP 177/98
== END 2020-11-22 15:15 | disposition home or self-care (01) ==
LOC: ER 13:26
DX: S20.211A Contusion of right front wall of thorax, initial encounter (principal); X58.XXXA Exposure to other specified factors, initial encounter; I10 Essential (primary) hypertension; M19.90 Unspecified osteoarthritis, unspecified site; F17.210 Nicotine dependence, cigarettes, uncomplicated
CPT/HCPCS: 71250

== ENCOUNTER 2023-07-15 06:31 | Day surgery (SDC) | payer OTHER, SELFPAY ==
[2023-07-12 14:34] LABS: Hematocrit 43.7 % (39.6-49.0); Lymphocytes % 30.1 % (15.3-44.8); MCV 96.6 fL (80-100); MPV 7.4 fL (7.6-11.3); Platelets 262 thou/uL (152-406); RBC Red Blood Cell Count 4.52 M/uL (4.33-5.43)
[2023-07-12 14:47] LABS: Potassium 4.4 mEq/L (3.5-5.1)
[2023-07-12 14:56] LABS: Protime INR 0.99
--- NOTE | 2023-07-13 12:57 | EKG ---
Test Date: 2023-07-12 Test Time: 15:12:52 Air Duct Mechanic: MANISHA MEASUREMENT RESULTS: Intervals: Rate: 70 AK: 186 QRSD: 90 QT: 418 QTc: 451 [place]: P: 65 AK: 186 QRS: 44 T: 32 INTERPRETIVE STATEMENTS: Normal sinus rhythm Minimal voltage criteria for LVH, may be normal variant Possible Inferior infarct, age undetermined Abnormal ECG Compared to ECG 07/12/2023 15:09:52 Left ventricular hypertrophy now present Myocardial infarct finding still present Electronically Signed On 07-13-23 12:52:56 CLINICAL REIMBURSEMENT SPECIALIST by Emeterio Corea
[2023-07-15] MEDS ORDERED: LIDOCAINE 1% MPF 5 ML VIAL ONE (06:56)
[2023-07-15] MEDS ORDERED: ONDANSETRON 4 MG/2 ML VIAL ONE (06:56)
[2023-07-15] MEDS ORDERED: FENTANYL CITR 100 MCG/2 ML ONE (06:57)
[2023-07-15] MEDS ORDERED: MIDAZOLAM HCL 2 MG/2 ML INJ ONE (06:57)
[2023-07-15] MEDS ORDERED: propofoL 200 MG/20 ML VIAL IV ONE (06:57)
[2023-07-15] MEDS ORDERED: BSS OPTHALMIC SOL 15 ML OPTH ONE (07:12)
[2023-07-15] MEDS: Ringers Lactate 1,000 ML IV ONE (07:12)
[2023-07-15] MEDS ORDERED: POVIDONE-IODINE 5% EYE DROPS ONE (07:13)
[2023-07-15] MEDS: PHENYLEPHRINE 10% OPTH 5ML ONE (07:21)
[2023-07-15] MEDS: MOXIFLOXACIN HCL 0.5% 3ML OPTH OPTH ONE (07:21)
[2023-07-15] MEDS: KETOROLAC OPTHALMIC 5 ML BOT ONE (07:21)
[2023-07-15] MEDS: CYCLOPENTOLATE 2% OPTH 2 ML ONE (07:21)
[2023-07-15] MEDS: TROPICAMIDE 1% OPTH 15 ML BOT ONE (07:21)
[2023-07-15] MEDS: LABETALOL 20 MG/4ML SYRINGE IV ONE (07:32)
[2023-07-15] MEDS: TRYPAN BLUE 0.5 ML SYR OPTH ONE (08:05)
[2023-07-15] MEDS: EPINEPHRINE 1 MG/ML VIAL ONE (08:08)
[2023-07-15] MEDS: BALANCED SALT IRRIG PLAIN 500 ML IRR ONE (08:08)
[2023-07-15] MEDS: DUOVISC 1 KIT OPTH ONE (08:09)
[2023-07-15] MEDS: TOBRADEX 0.3-0.1% OPTH OINTMENT ONE (08:09)
[2023-07-15] MEDS: MORPHINE 4 MG/ML SYR ONE ×2 (09:04→09:30)
--- NOTE | 2023-07-15 09:06 | OP ---
Date of Procedure: 07/15/2023 Surgeon: Chris Dixon MD Seo Intern: None. Preoperative Diagnosis: Visually significant cataract, quite mature type. Postoperative Diagnosis: Visually significant cataract, quite mature type. Procedure Performed: Cataract extraction (complex) with trypan blue and placement of intraocular surinder s. Description Of Procedure: After being properly identified in the preoperative holding area, the bella ent was taken back to the operating room where a time-out was performed. The patient was then preppe d and draped in the normal sterile fashion. Examination of the eye underneath the operating microsco pe revealed a well dilated pupil with a solid white cataract with no red reflex present. The paracen tesis wounds were made in the 12 o'clock and 6 o'clock position with a paracentesis blade and then tr ypan blue was instilled into the anterior chamber and allowed to sit for approximately 60 seconds. T his was irrigated out and repeated. Then, Viscoat was added into the anterior chamber. The main pha co incision wound was made temporally using a 2.4 mm keratome in a triplanar fashion. Using a 30-gau ge needle on an intra-ocular BSS, the anterior capsule was punctured and the cataract decompressed in order to reduce any chance of the anterior capsule split or [place] flag sign. A cystotome was then used to initiate a capsulotomy and a capsulorrhexis was created using the Utrata forceps. No hy drodissection and hydrodelineation were carried out and we proceeded directly to phacoemulsification and the lens was removed without complication using a standard divide and conquer technique. Once al l 4 quadrants had been removed, there was very little cortical material present, however, the capsule was cleaned and polished using bimanual irrigation and aspiration handpieces. The capsular bag was filled with viscoelastic and a Phani and Phani model DC blue, power 22.0 diopter, serial #[id number] was implanted into the capsular bag and rotated into position. The remaining viscoelastic was th en removed using irrigation, aspiration and the wounds were hydrated to seal them. Once I was happy that they were watertight and the lens confirmed to be well centered, the procedure concluded with th e patient tolerating the procedure well having been under general anesthesia the entire time. The li d speculum and drapes were removed and the patient patched over TobraDex ointment. He was then taken to the postoperative holding area in stable condition. He is to follow up with myself Dr. Chris Dixon tomorrow. There were no specimens sent. No drains placed. Implants are as above. LO/GAYL Voice ID: [id number] Report ID: [id number]
[2023-07-15] MEDS: HYDROMORPHONE HCL 1 MG/ML INJ ONE ×2 (09:43→09:55)
[2023-07-15 10:19] VITALS: O2SAT 95
[2023-07-15 11:21] VITALS: BP 169/105; TEMP 97.3
== END 2023-07-15 10:50 | disposition home or self-care (01) ==
LOC: OR 06:31
PROVIDERS: ATTEND Ophthalmology
PROC: 08RJ3JZ Replacement of Right Lens with Synthetic Substitute, Percutaneous Approach (ICD-10-PCS; principal; 2023-07-15 07:30)
DX: H25.89 Other age-related cataract (principal)
CPT/HCPCS: 93005; 85025; 80048; 36415; 85610; 85730; 66982; J2704; J2001; J1885; J2250; J3010; J0171; J1170 ×2; J2405; J7120

== ENCOUNTER 2024-05-04 20:45 | Emergency (ER) | payer OTHER ==
[2024-05-04] MEDS ORDERED: METHYLPREDNISOLONE 125 MG INJ ONE (20:52)
[2024-05-04] MEDS ORDERED: BENZONATATE 100 MG CAP PO ONE (20:52)
[2024-05-04] MEDS ORDERED: ALBUTEROL 2.5 MG/3 ML NEB SOL ONE (20:52)
[2024-05-04] MEDS ORDERED: IPRATROPIUM BROM 0.5MG/2.5ML ONE (20:52)
[2024-05-04] MEDS ORDERED: CODEINE 30MG/APAP 300MG TAB ONE (20:53)
[2024-05-04] MEDS ORDERED: GUAIFENESIN/DM 5 ML UCUP ONE (20:53)
[2024-05-04] MEDS ORDERED: PROMETHAZINE 25 MG TABLET ONE (21:32)
[2024-05-04 21:40] LABS: D-Dimer 0.35 FEUug/mL (0-0.500); PT Prothrombin Time 11.4 SECONDS (9.4-12.5); PTT, Activated Partial Thromb 30.5 SECONDS (24.3-36.9); Protime INR 1.02
[2024-05-04 21:48] LABS: ALT/SGPT 21 U/L (16-61); AST/SGOT 22 U/L (15-37); Albumin 3.5 g/dL (3.4-5.0); Albumin/Globulin Ratio 0.8 (1.1-1.8); Alkaline Phosphatase 72 U/L (45-117); Anion Gap 7.7 mEq/L (5.0-15.0); BUN Blood Urea Nitrogen 17 mg/dL (7-18); Bicarbonate 29 mEq/L (21-32); Bilirubin Total 0.3 mg/dL (0.2-1.0); Creatine Phosphokinase 143 U/L (39-308); Globulin 4.2 g/dL (2.3-3.5); Glomerular Filtration Rate 93 ml/min (=/>90); Glucose Level 110 mg/dL (74-106); Lipase 40 U/L (13-75); Magnesium 2.1 mg/dL (1.6-2.4); NT PRO-BNP 312 pg/mL (<125); Potassium 3.7 mEq/L (3.5-5.1); Protein, Total 7.7 g/dL (6.4-8.2); Sodium Level 136 mEq/L (136-145); Troponin High Sensitivity 13.5 pg/mL (<58.9)
[2024-05-04 22:06] LABS: Bilirubin Direct < 0.2 mg/dL (0-0.2); Bilirubin Indirect, Calculated 0.1 mg/dL (0.2-0.8); C-Reactive Protein < 2.90 mg/L (<3.00)
--- NOTE | 2024-05-04 22:10 | RAD REPORT ---
EXAM: Chest Single View HISTORY: CHEST PAIN COMPARISON: None. FINDINGS: LUNGS/PLEURA: The lungs are clear. No pleural effusions or pneumothorax. No pulmonary edema. MEDIASTINUM: The mediastinal silhouette is within normal limits. CARDIAC: The cardiac silhouette is within normal limits. UPPER ABDOMEN: No significant abnormality. BONES: No acute fracture. LINES/TUBES/OTHER: N/A IMPRESSION: No evidence of acute cardiopulmonary disease.
[2024-05-04 22:13] LABS: Absolute Basophils 0.1 K/uL (0-0.5); Absolute Eosinophils 0.6 K/uL (0-0.5); Absolute Lymphocytes (CBC) 2.5 K/uL (0.7-4.9); Absolute Monocytes 0.8 K/uL (0.1-1.3); Absolute Neutrophil 3.8 K/uL (1.8-8.0); Basophils % 1.3 % (0-1.3); Eosinophils % 7.7 % (0-4.4); Hematocrit 42.2 % (39.6-49.0); Lymphocytes % 31.8 % (15.3-44.8); MCH 31.5 pg (27.0-35.0); MCHC 33.3 g/dL (32.0-36.0); MCV 94.8 fL (80-100); Monocytes % 10.1 % (3.3-12.3); Neutrophils % 49.1 % (41.7-73.7); Nucleated Red Blood Cells % 0.2 % (0-0); Platelets 209 thou/uL (152-406); RBC Red Blood Cell Count 4.45 M/uL (4.33-5.43); Red Cell Distribution Width 13.8 % (12.1-15.2)
--- NOTE | 2024-05-04 22:46 | ER ---
Nurse's Notes [facility] Name: Edson Rosenbaum Age: 63 yrs Sex: Male : 1960 Arrival Date: 05/04/2024 Time: 20:45 Bed 17 Private MD: Diagnosis: COPD/ Chronic obstructive pulmonary disease with (acute) exacerbation Presentation: 05/04 20:46 Chief complaint: EMS states: he was complaining of difficulty breathing that getting rg5 worst, had a HX of COPD and a smoker. Coronavirus screen: Client denies travel out of the [place] in the last 14 days. Ebola Screen: Patient negative for fever greater than or equal to 101.5 degrees Fahrenheit, and additional compatible Ebola Virus Disease symptoms. Initial Sepsis Screen: Does the patient meet any 2 criteria? No. Patient's initial sepsis screen is negative. Does the patient have a suspected source of infection? No. Patient's initial sepsis screen is negative. Risk Assessment: Do you want to hurt yourself or someone else? Patient reports no desire to harm self or others. Onset of symptoms was May 04, 2024. 20:46 Method Of Arrival: EMS: [facility] rg5 20:46 Acuity: OLIVIA 3 rg5 20:46 Care prior to arrival: Medication(s) given: Nitroglycerin, x 1, zofran 4 mg, IV rg5 initiated. 18 GA, in the right antecubital area, Glucose check: 141 Oxygen administered. via nasal cannula. Triage Assessment: 20:52 General: Appears in no apparent distress. Behavior is calm, cooperative, appropriate rg5 for age. Pain: Denies pain. EENT: No deficits noted. Neuro: Level of Consciousness is awake, alert, Oriented to person, place, time. Cardiovascular: Heart tones S1 S2 Patient's skin is warm and dry. Rhythm is sinus rhythm. Respiratory: Reports shortness of breath cough that is non-productive, Airway is patent Trachea midline Respiratory pattern is regular, Breath sounds are diminished bilaterally. GI: Abdomen is round non-distended. : No signs and/or symptoms were reported regarding the genitourinary system. Derm: Skin is intact, Skin is dry, Skin is normal. Musculoskeletal: Circulation, motion, and sensation intact. Range of motion:. Historical: - Allergies: 20:50 No Known Allergies; rg5 - Home Meds: 20:46 atorvastatin oral [Active]; amlodipine oral [Active]; losartan oral [Active]; rg5 - PMHx: 20:52 Hypertension; rg5 20:46 Arthritis; Chronic obstructive lung disease; rg5 - Immunization history:: Adult Immunizations not up to date. - Infectious Disease History:: Denies. - Social history:: Smoking status: Patient reports the use of cigarette tobacco products, smokes one pack cigarettes per day. - Family history:: not pertinent. Screenin:46 [facility] ED Fall Risk Assessment (Adult) History of falling in the last 3 months, rg5 including since admission No falls in past 3 months (0 pts) Confusion or Disorientation No (0 pts) Intoxicated or Sedated No (0 pts) Impaired Gait No (0 pts) Mobility Assist Device Used No (0 pt) Altered Elimination No (0 pt) Score/Fall Risk Level 0 - 2 = Low Risk Oriented to surroundings, Maintained a safe environment, Hourly rounding (assess needs \T\ fall precautionary measures) done. Abuse screen: Denies threats or abuse. Nutritional screening: No deficits noted. Tuberculosis screening: No symptoms or risk factors identified. Assessment: 20:46 Reassessment: see triage assessment. rg5 22:03 Reassessment: Patient and/or family updated on plan of care and expected duration. Pain rg5 level reassessed. Patient is alert, oriented x 3, equal unlabored respirations, skin warm/dry/pink. Patient states feeling better. Patient states symptoms have improved. 23:00 Reassessment: Patient and/or family updated on plan of care and expected duration. Pain rg5 level reassessed. Patient is alert, oriented x 3, equal unlabored respirations, skin warm/dry/pink. Patient states feeling better. Patient states symptoms have improved. Vital Signs: 20:46 BP 176 / 103; Pulse 82; Resp 21; Temp 98.2; Pulse Ox 97% on 3 lpm NC; Weight 86.64 kg; rg5 Height 6 ft. 5 in. ; Pain 0/10; 20:56 BP 176 / 103; Pulse 82; Resp 21; Temp 98.2; Pulse Ox 97% on 3 lpm NC; rg5 21:15 BP 161 / 104; Pulse 67; Resp 20; Pulse Ox 100% on 4 lpm NC; rg5 22:01 BP 145 / 82; Pulse 78; Resp 18; Pulse Ox 95% on R/A; Pain 0/10; rg5 23:00 BP 140 / 80; Pulse 75; Resp 18; Temp 98(O); Pulse Ox 96% on R/A; Pain 0/10; rg5 20:46 Body Mass Index 22.65 (86.64 kg, 195.58 cm) rg5 20:46 Pain Scale: Adult rg5 22:01 Pain Scale: Adult rg5 23:00 Pain Scale: Adult rg5 Carly Coma Score: 20:44 Eye Response: spontaneous(4). Motor Response: obeys commands(6). Verbal Response: sp4 oriented(5). Total: 15. 20:46 Eye Response: spontaneous(4). Motor Response: obeys commands(6). Verbal Response: rg5 oriented(5). Total: 15. ED Course: 20:45 Patient arrived in ED. rv1 20:46 Marcelo Waller, ELVIA is Primary Nurse. rg5 20:46 Patient has correct armband on for positive identification. Placed in gown. Call light rg5 in reach. Side rails up X 1. Door closed. Noise minimized. Warm blanket given. 20:46 No provider procedures requiring assistance completed. Maintain EMS IV. Dressing rg5 intact. Gauge \T\ site: 18 gauge. IV is patent, is intact, Flushed right antecubital with 5 ml normal saline. 20:47 Zbigniew Bartlett MD is Attending Physician. sp4 20:50 Triage completed. rg5 20:52 Arm band placed on. EKG completed in triage. Results shown to . rg5 21:53 XRAY CXR (1 view) In Process Unspecified. EDMS 22:45 Leticia Carreon DO is Referral Physician. sp4 22:56 Provided Education on: POST ER CARE. rg5 22:56 IV discontinued, bleeding controlled, No redness/swelling at site. Pressure dressing rg5 applied. Administered Medications: 20:55 Drug: Albuterol Inhalation 2.5 mg Inhalation every 20 minutes x3 Route: Inhalation; rg5 21:00 Drug: Ipratropium Inhalation Aerosol 0.5 mg Inhalation once; Every 20 min for a total rg5 of 3 treatments x3 Route: Inhalation; 21:00 Drug: MethylPrednisoLONE IVP 125 mg IVP once Route: IVP; Site: right forearm; rg5 21:34 Follow up: Response: No adverse reaction rg5 21:00 Drug: Dextromethorphan-Guaifenesin PO Liquid 10 mg-100 mg/5 mL 10 ml PO once Route: PO; rg5 21:33 Follow up: Response: No adverse reaction rg5 21:00 Drug: Acetaminophen-Codeine PO (300 mg-30 mg) 2 tabs PO once; RASS on ADMIN: Combtv4, rg5 Very Agttd3, Agttd2, Rstlss1, AlertClm0, Drwsy-1, Lt Sdtn-2, Mod Sdtn-3, Dp Sdtn-4, UnArsble-5 Route: PO; 21:33 Follow up: Response: No adverse reaction rg5 21:00 Drug: Tessalon Perle PO 200 mg PO once Route: PO; rg5 21:33 Follow up: Response: No adverse reaction rg5 21:11 Drug: Promethazine PO 25 mg PO once Route: PO; rg5 21:33 Follow up: Response: No adverse reaction rg5 21:23 Drug: Albuterol Inhalation 2.5 mg Inhalation every 20 minutes x3 Route: Inhalation; rg5 21:23 Drug: Ipratropium Inhalation Aerosol 0.5 mg Inhalation once; Every 20 min for a total rg5 of 3 treatments x3 Route: Inhalation; 21:38 Drug: Albuterol Inhalation 2.5 mg Inhalation every 20 minutes x3 Route: Inhalation; rg5 21:38 Drug: Ipratropium Inhalation Aerosol 0.5 mg Inhalation once; Every 20 min for a total rg5 of 3 treatments x3 Route: Inhalation; 22:50 Drug: predniSONE PO 60 mg PO once Route: PO; rg5 23:08 Follow up: Response: No adverse reaction rg5 22:55 Drug: Nicotine Transdermal Patch 21 mg/24 hr 1 patches Transdermal once Route: rg5 Transdermal; Site: abdomen; 23:00 Drug: Acetaminophen PO 1000 mg PO once Route: PO; rg5 23:16 Follow up: Response: No adverse reaction rg5 Medication: 20:46 VIS not applicable for this client. rg5 Outcome: 22:45 Discharge ordered by MD. viera 23:08 Discharged to home ambulatory, rg5 23:08 Condition: stable 23:08 Discharge instructions given to patient, Instructed on discharge instructions, follow up and referral plans. Demonstrated understanding of instructions, follow-up care, medications, Prescriptions given X 4, 23:23 Patient left the ED. rg5 Signatures: Dispatcher [employer] Jess Thomas rv1 Zbigniew Bartlett MD MD sp4 Marcelo Waller RN RN rg5 Corrections: (The following items were deleted from the chart) 20:54 20:52 PMHx: copd (Hypertension); rg5 rg5 20:54 20:52 PMHx: copd (Hypertension); rg5 rg5 21:43 20:50 Home Meds: atorvastatin oral; rg5 rg5
--- NOTE | 2024-05-04 22:46 | EDPHYS ---
Physician Documentation [facility] Name: Edson Rosenbaum Age: 63 yrs Sex: Male : 1960 Arrival Date: 05/04/2024 Time: 20:45 Bed 17 Private MD: ED Physician Zbigniew Bartlett HPI: 05/04 20:47 This 63 yrs old Male presents to ER via Unassigned with complaints of dyspnea sp4 and weakness . 23:01 63-year-old male presents with complaint of worsening dyspnea and generalized weakness sp4 associated with cough. . Historical: - Allergies: 20:50 No Known Allergies; rg5 - Home Meds: 20:46 atorvastatin oral [Active]; amlodipine oral [Active]; losartan oral [Active]; rg5 - PMHx: 20:52 Hypertension; rg5 20:46 Arthritis; Chronic obstructive lung disease; rg5 - Immunization history:: Adult Immunizations not up to date. - Infectious Disease History:: Denies. - Social history:: Smoking status: Patient reports the use of cigarette tobacco products, smokes one pack cigarettes per day. - Family history:: not pertinent. ROS: 23:04 Constitutional: Negative for fever, chills, and weight loss, positive shortness of sp4 breath, positive generalized weakness, positive cough 23:04 All other systems are negative, Exam: 23:04 Constitutional: This is a well developed, well nourished patient who is awake, alert, sp4 and in no acute distress. Head/Face: Normocephalic, atraumatic. Eyes: Pupils equal round and reactive to light, extra-ocular motions intact. Lids and lashes normal. Conjunctiva and sclera are not injected. Cornea within normal limits. Periorbital areas with no swelling, redness, or edema. ENT: Nares patent. No nasal discharge, no septal abnormalities noted. Tympanic membranes are normal and external auditory canals are clear. Oropharynx with no redness, swelling, or masses, exudates, or evidence of obstruction, uvula midline. Mucous membranes moist. Neck: Trachea midline, no thyromegaly or masses palpated, and no cervical lymphadenopathy. Supple, full range of motion without nuchal rigidity, or vertebral point tenderness. Chest/axilla: Normal chest wall appearance and motion. Nontender with no deformity. No lesions are appreciated. Cardiovascular: Regular rate and rhythm with a normal S1 and S2. No gallops, murmurs, or rubs. Normal PMI, no JVD. No pulse deficits. Respiratory: Lungs have equal breath sounds bilaterally, Positive for diffuse wheezing with expiration in all lung pena, Moderate retractions, dysnea and tachypnea on exam Abdomen/GI: Soft, with normal bowel sounds. No distension or tympany. No guarding or rebound. No evidence of tenderness throughout. Back: No spinal tenderness. No costovertebral tenderness. Skin: Warm, dry with normal turgor. Normal color with no rashes, no lesions, and no evidence of cellulitis. MS/ Extremity: Pulses equal, no cyanosis. Neurovascular intact. Full, normal range of motion. Neuro: Awake and alert, GCS 15, oriented to person, place, time, and situation. Cranial nerves II-XII grossly intact. Motor strength 5/5 in all extremities. Sensory grossly intact. Psych: Awake, alert, with orientation to person, place and time. Behavior, mood, and affect are within normal limits 23:04 ECG was reviewed by the Attending Physician. EKG at 2044 sinus rhythm with occasional PVCs rate 87. Otherwise normal, there are unifocal PVCs Vital Signs: 20:46 BP 176 / 103; Pulse 82; Resp 21; Temp 98.2; Pulse Ox 97% on 3 lpm NC; Weight 86.64 kg; rg5 Height 6 ft. 5 in. ; Pain 0/10; 20:56 BP 176 / 103; Pulse 82; Resp 21; Temp 98.2; Pulse Ox 97% on 3 lpm NC; 5 21:15 BP 161 / 104; Pulse 67; Resp 20; Pulse Ox 100% on 4 lpm NC; 5 22:01 BP 145 / 82; Pulse 78; Resp 18; Pulse Ox 95% on R/A; Pain 0/10; 5 23:00 BP 140 / 80; Pulse 75; Resp 18; Temp 98(O); Pulse Ox 96% on R/A; Pain 0/10; [facility] 20:46 Body Mass Index 22.65 (86.64 kg, 195.58 cm) [facility] 20:46 Pain Scale: Adult [facility] 22:01 Pain Scale: Adult [facility] 23:00 Pain Scale: Adult rg5 Carly Coma Score: 20:44 Eye Response: spontaneous(4). Motor Response: obeys commands(6). Verbal Response: sp4 oriented(5). Total: 15. 20:46 Eye Response: spontaneous(4). Motor Response: obeys commands(6). Verbal Response: rg5 oriented(5). Total: 15. MDM: 20:44 Differential diagnosis: Anxiety Reaction asthma, Bronchitis CHF exacerbation, Chronic sp4 Obstructive Pulmonary Disease pneumonia. Data reviewed: vital signs, nurses notes, EMS record, old medical records, lab test result(s), EKG, radiologic studies, plain films. ED course: Patient has normal chest x-ray and wheezing has significantly improved after breathing treatments. Patient was offered hospitalization for management of COPD. Patient declined hospitalization opting to go home with albuterol and prednisone. Will recommend to switch to nicotine patch and quit smoking altogether. Continue all home medications including amlodipine and carvedilol. Will definitely recommend quitting smoking. Will prescribe albuterol inhaler as well.. 22:44 ED course: [place] [id number] sp4 RADIOLOGYSERVICES REPORT Name: EDSON ROSENBAUM Acct Number: [id number] :1960 Age:63 Sex:M Ord Phys: Zbigniew Bartlett MD Unit Number: [id number] [facility] Dr: ALYCIA Status: REG ER Exam Date: 05/04/24 EXAM: Chest Single View HISTORY: CHEST PAIN COMPARISON: None. FINDINGS: LUNGS/PLEURA: The lungs are clear. No pleural effusions or pneumothorax. No pulmonary edema. MEDIASTINUM: The mediastinal silhouette is within normal limits. CARDIAC: The cardiac silhouette is within normal limits. UPPER ABDOMEN: No significant abnormality. BONES: No acute fracture. LINES/TUBES/OTHER: N/A IMPRESSION: No evidence of acute cardiopulmonary disease. . 22:45 Medical Screening Exam initiated sp4 05/04 20:48 Order name: BMP; Complete Time: 22:22 sp4 05/04 20:48 Order name: Blood Culture Adult (2) sp4 05/04 20:48 Order name: CBC with Diff; Complete Time: 22:22 sp4 11/28 20:48 Order name: CPK; Complete Time: 22:05/04 20:48 Order name: D-Dimer; Complete Time: :05/04 20:48 Order name: Hepatic Function; Complete Time: :05/04 20:48 Order name: Lipase; Complete Time: :05/04 20:48 Order name: Magnesium; Complete Time: :05/04 20:48 Order name: NT PRO-BNP; Complete Time: :05/04 20:48 Order name: PT-INR; Complete Time: :05/04 20:48 Order name: Ptt, Activated; Complete Time: :05/04 20:48 Order name: Troponin HS; Complete Time: :05/04 20:49 Order name: CRP; Complete Time: :05/04 20:49 Order name: Alcohol Level; Complete Time: :05/04 20:48 Order name: XRAY CXR (1 view); Complete Time: :05/04 20:48 Order name: Cardiac monitoring; Complete Time: :05/04 20:48 Order name: EKG - Nurse/Tech; Complete Time: :05/04 20:48 Order name: IV Saline Lock; Complete Time: :05/04 20:48 Order name: Labs collected and sent; Complete Time: :05/04 20:48 Order name: O2 Per Protocol; Complete Time: :05/04 20:48 Order name: O2 Sat Monitoring; Complete Time: : EC:44 Rate is 87 beats/min. Rhythm is irregular, Sinus Rhythm with Unifocal PVCs, Occasional sp4 PVCs. QRS [place] is Normal. ID interval is normal. QRS interval is normal. QT interval is normal. No Q waves. T waves are Normal. No ST changes noted. Clinical impression: No evidence of ischemia. Interpreted by me. Reviewed by me. Administered Medications: 20:55 Drug: Albuterol Inhalation 2.5 mg Inhalation every 20 minutes x3 Route: Inhalation; rg5 21:00 Drug: Ipratropium Inhalation Aerosol 0.5 mg Inhalation once; Every 20 min for a total rg5 of 3 treatments x3 Route: Inhalation; 21:00 Drug: MethylPrednisoLONE IVP 125 mg IVP once Route: IVP; Site: right forearm; rg5 21:34 Follow up: Response: No adverse reaction rg5 21:00 Drug: Dextromethorphan-Guaifenesin PO Liquid 10 mg-100 mg/5 mL 10 ml PO once Route: PO; rg5 21:33 Follow up: Response: No adverse reaction rg5 21:00 Drug: Acetaminophen-Codeine PO (300 mg-30 mg) 2 tabs PO once; RASS on ADMIN: Combtv4, rg5 Very Agttd3, Agttd2, Rstlss1, AlertClm0, Drwsy-1, Lt Sdtn-2, Mod Sdtn-3, Dp Sdtn-4, UnArsble-5 Route: PO; 21:33 Follow up: Response: No adverse reaction rg5 21:00 Drug: Tessalon Perle PO 200 mg PO once Route: PO; rg5 21:33 Follow up: Response: No adverse reaction rg5 21:11 Drug: Promethazine PO 25 mg PO once Route: PO; rg5 21:33 Follow up: Response: No adverse reaction rg5 21:23 Drug: Albuterol Inhalation 2.5 mg Inhalation every 20 minutes x3 Route: Inhalation; rg5 21:23 Drug: Ipratropium Inhalation Aerosol 0.5 mg Inhalation once; Every 20 min for a total rg5 of 3 treatments x3 Route: Inhalation; 21:38 Drug: Albuterol Inhalation 2.5 mg Inhalation every 20 minutes x3 Route: Inhalation; rg5 21:38 Drug: Ipratropium Inhalation Aerosol 0.5 mg Inhalation once; Every 20 min for a total rg5 of 3 treatments x3 Route: Inhalation; 22:50 Drug: predniSONE PO 60 mg PO once Route: PO; rg5 23:08 Follow up: Response: No adverse reaction rg5 22:55 Drug: Nicotine Transdermal Patch 21 mg/24 hr 1 patches Transdermal once Route: rg5 Transdermal; Site: abdomen; 23:00 Drug: Acetaminophen PO 1000 mg PO once Route: PO; rg5 23:16 Follow up: Response: No adverse reaction rg5 Disposition Summary: 05/04/24 22:45 Discharge Ordered Notes: Location: Home sp4 Problem: new sp4 Symptoms: have improved sp4 Condition: Stable sp4 Diagnosis - COPD/ Chronic obstructive pulmonary disease with (acute) exacerbation sp4 Followup: sp4 - With: Leticia Carreon DO - When: 7 - 10 days - Reason: Recheck today's complaints Discharge Instructions: - Discharge Summary Sheet sp4 - Chronic Obstructive Pulmonary Disease Exacerbation sp4 Forms: - Patient Portal Instructions sp4 Prescriptions: - Ventolin HFA 90 mcg/actuation Inhalation HFA Aerosol Inhaler - inhale 2 puff INHALATION route every 4 hours PRN wheezing and dyspnea; 1 unit; sp4 Refills: 0, Product Selection Permitted - ipratropium bromide 0.02 % Inhalation solution - nebulize 2.5 milliliter INHALATION route every 4 hours for 10 days PRN for sp4 wheezing via nebulizer, Use Together with Albuterol, Dispense 50 vials or Two boxes; 50 milliliter; Refills: 0, Product Selection Permitted - nicotine 21 mg/24 hr Transdermal patch, transdermal 24 hours - apply 1 patch TRANSDERMAL route every 24 hours for 30 days; 30 patch; Refills: sp4 0, Product Selection Permitted - Albuterol Sulfate 2.5 mg /3 mL (0.083 %) Inhalation Solution for Nebulization - inhale 1 unit NEBULIZATION route every 4 hours As needed Dispense 50 units or sp4 Two boxes, Nebulized every 4 hours PRN wheezing , Dispense with Nebulizer and Adult mask; 50 unit; Refills: 0, Product Selection Permitted - Prednisone 20 mg Oral Tablet - take 2 tablets ORAL route once daily for 5 days; 10 tablet; Refills: 0, Product sp4 Selection Permitted Signatures: Dispatcher [employer] EDMS Zbigniew Bartlett MD MD sp4 Marcelo Waller RN RN rg5 Corrections: (The following items were deleted from the chart) 20:49 20:49 BASIC METABOLIC PANEL+C.LAB.BRZ ordered. EDMS EDMS 20:49 20:49 BLOOD CULTURE*+BA.LAB.BRZ ordered. EDMS EDMS 20:49 20:49 CBC+H.LAB.BRZ ordered. EDMS EDMS 20:49 20:49 CREATINE PHOSPHOKINASE+C.LAB.BRZ ordered. EDMS EDMS 20:49 20:49 D-DIMER+COAG.LAB.BRZ ordered. EDMS EDMS 20:49 20:49 HEPATIC FUNCTION+C.LAB.BRZ ordered. EDMS EDMS 20:49 20:49 LIPASE+C.LAB.BRZ ordered. EDMS EDMS 20:49 20:49 MAGNESIUM+C.LAB.BRZ ordered. EDMS EDMS 20:49 20:49 PROBNP+C.LAB.BRZ ordered. EDMS EDMS 20:49 20:49 PROTIME (+INR)+COAG.LAB.BRZ ordered. EDMS EDMS 20:49 20:49 PTT, ACTIVATED+COAG.LAB.BRZ ordered. EDMS EDMS 20:49 20:49 Troponin High Sensitivity+C.LAB.BRZ ordered. EDMS EDMS 20:49 20:49 Chest Single View+RAD.RAD.BRZ ordered. EDMS EDMS 20:50 20:50 ETHANOL+C.LAB.BRZ ordered. EDMS EDMS 20:54 20:52 PMHx: copd (Hypertension); rg5 rg5 20:54 20:52 PMHx: copd (Hypertension); rg5 rg5 21:43 20:50 Home Meds: atorvastatin oral; rg5 rg5
[2024-05-04] MEDS ORDERED: NICOTINE 21 MG/PAT TD ONE (22:48)
[2024-05-04] MEDS ORDERED: predniSONE 20 MG TAB ONE (22:49)
[2024-05-04] MEDS ORDERED: ACETAMINOPHEN 500 MG TAB ONE (22:57)
[2024-05-04 23:34] VITALS: BP 140/80; TEMP 98; O2SAT 96
--- NOTE | 2024-05-07 14:16 | EKG ---
Test Date: 2024-05-04 Test Time: 20:44:40 Change Management Analyst: HUMPHREY MEASUREMENT RESULTS: Intervals: Rate: 87 CT: 182 QRSD: 92 QT: 360 QTc: 433 [place]: P: 76 CT: 182 QRS: 41 T: 44 INTERPRETIVE STATEMENTS: Sinus rhythm with occasional premature ventricular complexes Otherwise normal ECG Compared to ECG 07/12/2023 15:12:52 Ventricular premature complex(es) now present Left ventricular hypertrophy no longer present Myocardial infarct finding no longer present Electronically Signed On 05-07-24 14:14:24 MAIL DISTRIBUTION CLERK by Emeterio Corea
== END 2024-05-04 23:23 | disposition home or self-care (01) ==
LOC: ER 20:45
DX: J44.1 Chronic obstructive pulmonary disease with (acute) exacerbation (principal); R53.1 Weakness; I10 Essential (primary) hypertension; F17.210 Nicotine dependence, cigarettes, uncomplicated
CPT/HCPCS: 93005; 87040 ×2; 85025; 80048; 36415; 83735; 82550; 87205; 85610; 85379; 80076; 85730; 84484; 83690; 83880; 86140; 71045; 96374; 99285; 82077; Q0169; J7512; J7613; J7644; J2919